=== PATIENT | female | born 1985 | race African-American/Black ===

== ENCOUNTER 2017-03-10 03:37 | Emergency (ER) | payer OTHER ==
[~2017-03-10] VITALS: Ht 165.1 cm; Wt 77.0 kg
[2017-03-10] MEDS ORDERED: IBUP-1547 PO (03:42)
[2017-03-10] MEDS ORDERED: CLIN-77 PO (03:42)
[2017-03-10] MEDS ORDERED: METO25 PO (03:45)
[2017-03-10 04:11] VITALS: BP 150/107
== END 2017-03-10 04:31 | disposition home or self-care (01) ==
LOC: EMS 03:38
DX: K02.9 Dental caries, unspecified (principal); I10 Essential (primary) hypertension; Z88.0 Allergy status to penicillin; Z88.5 Allergy status to narcotic agent
CPT/HCPCS: 99283